=== PATIENT | male | born 1965 | race Caucasian/White ===

== ENCOUNTER → 2024-05-24 06:41 | Outpatient (REF) | payer BC, SELFPAY | LOC: PAVMRI 06:41 | PROVIDERS: ATTENDING PHYSICIAN Family Medicine | DX: H93.A2 Pulsatile tinnitus, left ear (principal) | CPT/HCPCS: 70544 ==

== ENCOUNTER → 2024-06-22 06:56 | Outpatient (REF) | payer BC, SELFPAY | LOC: RAD 06:56 | PROVIDERS: ATTENDING PHYSICIAN Family Medicine | DX: H93.A2 Pulsatile tinnitus, left ear (principal) | CPT/HCPCS: 93880 ==

== ENCOUNTER → 2025-08-20 08:36 | Outpatient (REF) | payer BC, SELFPAY | LOC: PAVMRI 08:36 | PROVIDERS: ATTENDING PHYSICIAN Specialist; FAMILY PHYSICIAN Family Medicine | DX: M25.511 Pain in right shoulder (principal) | CPT/HCPCS: 73221 ==